=== PATIENT | female | born 1985 | race Caucasian/White ===

== ENCOUNTER 2024-09-19 11:54 | Emergency (ER) | payer MEDICAID, SELFPAY ==
--- OUTSIDE RECORDS SUMMARY | 2024-09-19 11:58 | XMS_ITS | Clinical Summary ---
Author Organization [facility] Address [address] [id number] Care Team Providers Care Poultry Helper Name Role Phone Ca Mcmillan MD Primary Care Provider [phone] Allergies Active Allergy Reactions Criticality Noted Date Comments Thais Blanca 10/18/2018 Medications No known medications Family History Medical History Relation Comments None Father Cancer Mother Relation Status Comments Father Alive Mother Alive Social History Tobacco Use Types Packs/Day Years Used Date Smoking Tobacco: Every Day Cigarettes 0.5 15 Smokeless Tobacco: Never Alcohol Use Standard Drinks/Week Comments Yes 0 (1 standard drink = 0.6 oz pur e alcohol) SOCIALLY Comments No Sex and Gender Information Value Date Recorded Sex Assigned at Not on file Legal Sex Female 8:03 PM CDT Gender Identity Not on file Sexual Orientation Not on file Last Filed Vital Signs Vital Sign Reading Time Taken Comments Blood Pressure 110/65 09/17/2023 1:01 PM CDT Pulse 70 09/17/2023 12:31 PM CDT Temperature 36.4 C (97.6 F) 09/17/2023 11:43 AM CDT Respiratory Rate 20 09/17/2023 12:31 PM CDT Oxygen Saturation 98% 09/17/2023 12:31 PM CDT Inhaled Oxygen Concentration - - Weight 101.2 kg (223 lb) 09/17/2023 11:43 AM CDT Height 167.6 cm (5' 6) 09/17/2023 11:43 AM CDT Body Mass Index 35.99 09/17/2023 11:43 AM CDT Plan of Treatment Health Maintenance Due Date Last Done Comments Cervical Cancer Screening Pa p Smear (Age 30 to 64) Every 3 Years 1986 Annual Physical 1989 Hepatitis C 2004 Hepatitis B Vaccines (1 of 3 - 19+ 3-dose series) 2005 Pneumococcal Vaccine: Pediatrics (0 to 5 Years) and At-Risk Patients (6 to 49 Years) (1 of 2 - PCV) 2005 Cervical Cancer Screening João phillip with HPV Testing (Age 30 to 64) Every 5 Years 2016 Cervical Cancer Screening wi th HPV 2016 COVID-19 Vaccine (1 - 2023-2 5 season) 2023 DTaP, Tdap and Td Vaccines ( 3 - Td or Tdap) 03/20/2027 03/20/2017, 2014 HPV Vaccines Aged Out No longer eligi ble based on patient's age to complete this topic Meningococcal B Vaccine Aged Out No l onger eligible based on patient's age to complete this topic Meningococcal Vaccine Aged Out No johan chandrika eligible based on patient's age to complete this topic RSV Immunizations Under 20 Months Aged Out No longer eligible b ased on patient's age to complete this topic Insurance Care Teams Poultry Helper Relationship Specialty Start Date End Date Ca Mcmillan MD [address] [place] [address] PCP - General OBGYN 08/10/21
[2024-09-19 12:04] VITALS: BP 137/84; PULSE 78; RESP 16; TEMP 36.5; O2SAT 100
--- NOTE | 2024-09-19 12:14 | ED_ITS ---
HPI - Female Genitourinary General Chief complaint: Urogenital-Female Stated complaint: UTI Time Seen by Provider: 09/19/24 12:14 Source: patient Mode of arrival: ambulatory Limitations: no limitations History of Present Illness HPI Narrative: Blanca is a 39-year-old female patient presenting to the clinic today with complaints of possible UTI. She reports burning with urination, frequency, urgency, suprapubic/lower abdominal pain, and right flank pain. States her symptoms started yesterday. She took some azo yesterday that helped alleviate some of her symptoms but has not taken any today. Denies any known fever but does have associated nausea. She has never had a urinary tract infection in the past. No history of kidney stones. Rates her pain 10/10-constant and sharp. Has not taken any Tylenol and ibuprofen for her pain. Denies any vaginal discharge or concern for STI. Denies any concern for . Review of Systems Review of Systems: Pertinent positives per HPI. Patient denies any fever, chills, rash, headache, visual changes, dizziness, cough, shortness of breath, chest pain, palpitations, nausea, vomiting, diarrhea, constipation. PMFSH Comments At the time of my signature, I reviewed and agree with the nursing past medical, surgical, social, and family history. There is no relevant family history pertinent to the patient complaint. Exam Narrative: General: Well-developed, well nourished, in no apparent distress. Head: Normocephalic, atraumatic. Cardio: Regular rate and rhythm, s1 and s2 normal, no murmur appreciated. Resp: Clear to auscultation bilaterally, no rhonchi, rales, wheezing or rubs. Abdomen: Soft, pliable, bowel sounds present in all quadrants, non-tender to palpation, no organomegly, no CVAT tenderness. : Deferred Course Course Emergency Course: Portions of this record may have been created with voice recognition software. Level of Care: Express Care Visit Vital Signs Vital signs: Vital Signs Temperature 36.5 C 09/19/24 12:04 Pulse Rate 78 09/19/24 12:04 Respiratory Rate 16 09/19/24 12:04 Blood Pressure 137/84 09/19/24 12:04 Pulse Oximetry 100 09/19/24 12:04 Temperature 36.5 C 09/19/24 12:04 Pulse Rate 78 09/19/24 12:04 Respiratory Rate 16 09/19/24 12:04 Blood Pressure 137/84 09/19/24 12:04 Pulse Oximetry 100 09/19/24 12:04 Vital signs reviewed MDM - Female Genitourinary MDM Narrative Medical decision making narrative: At the time of visit patient is resting comfortably on the exam table. Patient appears to be nontoxic. Labs: Urinalysis positive for leukocytes, blood, protein, and nitrates. We will send urine for culture Plan: I suspect patient has a complicated UTI- likely pyelonephritis. Less likely obstructing kidney stone. Prescription for Bactrim DS was sent to the pharmacy. Supportive measures were discussed with the patient and they voiced understanding discharge instructions and agrees to treatment plan. Return precautions reviewed Differential Diagnosis Differential diagnosis: Likely urinary tract infection, bacterial vaginosis, trichomoniasis, cervicitis, ovarian cyst, vaginitis, ruptured ovarian cyst, cystitis and other (Pyelonephritis, ureterolithiasis, nephrolithiasis) Discharge Plan Discharge Clinical Impression: Pyelonephritis Patient Disposition: Home Condition: Stable Instructions: Antibiotic Form, Kidney Infection (ED) Additional Instructions: Urinalysis positive for leukocytes, nitrates, blood, and protein. We will send urine for culture I suspect you likely have a kidney infection Take Bactrim as prescribed Increase fluids and stay well hydrated Wipe front to back. May use wet wipes. Avoid tub baths If sexually active- pee before and after intercourse. Wear cotton panties Avoid tight clothing up against the genitals Follow up with your PCP in 1 week if symptoms persist. Go to the emergency room if your symptoms worsen-fever not controlled by Tylenol or Motrin, nausea/vomiting, weakness, lethargy, confusion, difficulty urinating, or worsening of abdominal pain/flank pain Patient Language: Lithuanian Prescriptions: New sulfamethoxazole-trimethoprim [Bactrim DS] 800-160 mg tablet 1 tablet PO Q12H 7 Days Qty: 14 0RF Follow-up/Referrals: PHYSICIAN,[facility] [Primary Care Provider] - Time of Disposition: 12:17 Quality NIHSS Nursing Documentation ED NIHSS nursing documentation: reviewed/agree
[2024-09-19 12:21] LABS: EDUAAPPEAR Cloudy; EDUABILI Negative (Negative); EDUABLOOD 2+ (Negative); EDUACOLOR1 Yellow; EDUAGLUCOSE Negative (Negative); EDUAKETONE Negative (Negative); EDUALEUKO 2+ (Negative); EDUANITRATE Positive (Negative); EDUAPH 7.0; EDUAPROTEIN 2+ (Negative); EDUASPGRAVITY 1.025; EDUAUROBILI 2.0
== END 2024-09-19 12:19 | disposition home or self-care (01) ==
PROVIDERS: Emergency Provider Nurse Practitioner Family
DX: N12 Tubulo-interstitial nephritis, not specified as acute or chronic (principal)
CPT/HCPCS: 81003; 87086; 87186; 99203; G0463